=== PATIENT | female | born 1990 | race African-American/Black ===

== ENCOUNTER 2017-02-24 09:33 | Emergency (ER) | payer SELFPAY ==
[2017-02-24 09:41] VITALS: BP 132/73; PULSE 96; TEMP 99.2; BMI 25.4
--- NOTE | 2017-02-24 10:01 | PDOC ---
History of Present Illness - General Chief Complaint: Vaginal Bleeding Stated Complaint: VAGINAL BLEEDING, 9 WKS Time Seen by Provider: 02/24/17 09:51 History Source: Patient - History of Present Illness Timing/Duration: reports: constant Quality: reports: moderate Past History - Past Medical History Allergies/Adverse Reactions: Allergies Allergy/AdvReac Type Severity Reaction Status Date / Time No Known Allergies Allergy Verified 02/24/17 09:38 Home Medications: Ambulatory Orders NK [No Known Home Medication] 02/24/17 Other medical history: denies - Reproductive History Is Patient Now?: Yes (#): 1 Para: 0 - Immunization History Immunization Up to Date: Yes - Psycho/Social/Smoking Cessation Hx Suicidal Ideation: No Smoking History: Never smoked Information on smoking cessation initiated: No Hx Alcohol Use: No Drug/Substance Use Hx: No Review of Systems - Review of Systems Constitutional: No: Chills, Fever Respiratory: No: Shortness of Breath Cardiac (ROS): No: Chest Pain, Palpitations ABD/GI: No: Nausea, Vomiting, Abdominal cramping : No: Dysuria *Physical Exam - Vital Signs Last Vital Signs Temp Pulse Resp BP Pulse Ox 99.2 F 96 H 18 132/73 98 02/24/17 09:38 02/24/17 09:38 02/24/17 09:38 02/24/17 09:38 02/24/17 09:38 - Physical Exam Comments: 02/24/17 09:59 Pt teary in ED, states "I think I'm having a miscarriage" General Appearance: Yes: Appropriately Dressed HEENT: positive: Normal Voice Neck: positive: Supple Respiratory/Chest: negative: Respiratory Distress Female Pelvic Exam: positive: normal external exam, cervical os closed, normal adnexa, vaginal bleeding (minimal, no clots). negative: CMT, adnexal tenderness Gastrointestinal/Abdominal: positive: Soft. negative: Tender, Mass Musculoskeletal: negative: CVA Tenderness Extremity: positive: Normal Inspection Integumentary: positive: Dry, Warm Neurologic: positive: Fully Oriented, Alert, Normal Mood/Affect Medical Decision Making - Medical Decision Making 02/24/17 09:58 26-year-old female, denies any past medical history , approximately 9 weeks , here with "moderate" vaginal bleeding this a.m, no blood clots. Denies abdominal pain, nausea, vomiting, or dysuria. Patient has her first available appointment in several days. Has not yet had an ultrasound this See exam 1st trimester bleed Stable w/ benign abd Os closed w/ minimal BRB R/o ectopic vs threatened AB vs vag bleed in normal -T&S -beta -ua -US 02/24/17 10:30 02/24/17 11:30 +IUP @ 6 weeks 4 days w/ no activity c/w possible demise. UA neg. Blood type B+. Pt aware, given report and labs and will f/u with her OB this Tuesday for re-evaluation as already scheduled. *DC/Admit/Observation/Transfer Diagnosis at time of Disposition: Threatened - Discharge Dispostion Disposition: HOME Condition at time of disposition: Stable - Patient Instructions Printed Discharge Instructions: Threatened Additional Instructions: Your US showed an intrauterine at 6 weeks 4 days but no heart activity was detected which could indicate possible demise. Please follow up with your OB this week. Your BHCG was 7097 today. You urine showed no infection. Your blood type is B+ Return to ED for worsening of symptoms
[2017-02-24 10:32] LABS: URINE APPEARANCE CLEAR; URINE BILIRUBIN NEGATIVE (NEGATIVE); URINE BLOOD 3+ (NEGATIVE); URINE COLOR YELLOW; URINE GLUCOSE (UA) NEGATIVE (NEGATIVE); URINE KETONE NEGATIVE (NEGATIVE); URINE LEUK ESTERASE NEGATIVE (NEGATIVE); URINE NITRITE NEGATIVE (NEGATIVE); URINE PROTEIN NEGATIVE (NEGATIVE); URINE UROBILINOGEN NEGATIVE mg/dL (0.2-1.0)
[2017-02-24 10:34] LABS: URINE HYALINE CAST 1 /lpf; URINE MUCUS MANY; URINE RBC 1 /hpf (0-3); URINE WBC 1 /hpf (3-5)
--- NOTE | 2017-02-24 20:27 | PDOC ---
*Physical Exam - Vital Signs Last Vital Signs Temp Pulse Resp BP Pulse Ox 99.2 F 96 H 18 132/73 98 02/24/17 09:38 02/24/17 09:38 02/24/17 09:38 02/24/17 09:38 02/24/17 09:38 ED Treatment Course - ADDITIONAL ORDERS Additional order review: Laboratory Results 02/24/17 02/24/17 02/24/17 10:00 09:58 09:56 Beta HCG, Quant 7097.3 Urine Color Yellow Urine Appearance Clear Urine pH 5.0 Ur Specific [place] 1.025 Urine Protein Negative Urine Glucose (UA) Negative Urine Ketones Negative Urine Blood 3+ H Urine Nitrite Negative Urine Bilirubin Negative Urine Urobilinogen Negative Ur Leukocyte Esterase Negative Urine RBC 1 Urine WBC 1 Ur Epithelial Cells Rare Hyaline Casts 1 Urine Mucus Many Urine HCG, Qual Positive Blood Type B POSITIVE Antibody Screen Negative Medical Decision Making - Medical Decision Making 02/24/17 20:25 I agree with CINTIA Jay's history, assessment and plan. Patient is 26-year-old female who presents with a likely threatened . Patient is hemodynamically stable and no longer having vaginal bleeding. Patient has an appointment on Tuesday with her OB. I instructed her that if her bleeding were to exceed soaking through 1 pad per hour for 3 or more hours that she should return to the ED or seek care with her OB immediately. *DC/Admit/Observation/Transfer Diagnosis at time of Disposition: Threatened - Discharge Dispostion Disposition: HOME Condition at time of disposition: Stable - Referrals - Patient Instructions Printed Discharge Instructions: Threatened Additional Instructions: Your US showed an intrauterine at 6 weeks 4 days but no heart activity was detected which could indicate possible demise. Please follow up with your OB this week. Your BHCG was 7097 today. You urine showed no infection. Your blood type is B+ Return to ED for worsening of symptoms - Post Discharge Activity
== END 2017-02-24 11:45 | disposition home or self-care (01) ==
LOC: JER 09:33
DX: O26.891 Other specified pregnancy related conditions, first trimester (principal); Z3A.09 9 weeks gestation of pregnancy; O20.0 Threatened abortion
CPT/HCPCS: 36415; 76817-TC; 81003; 81015; 84702; 84703; 86850; 86900; 86901; 99282-25